=== PATIENT | male | born 1935 | race Caucasian/White ===

== ENCOUNTER 2018-05-11 12:26 | Inpatient (IN) | payer MEDICARE, OTHER | END 2018-05-13 16:00 | disposition home or self-care (01) | LOC: ER 12:26 → ED HOLD 17:20 → SUR 3N 19:45 ==

== ENCOUNTER 2018-08-29 11:54 | Day surgery (SDC) | payer MEDICARE, OTHER ==
[~2018-08-29] VITALS: Ht 175.3 cm; Wt 84.0 kg
[2018-08-29] VITALS (9 sets, daily range): BP systolic 116–148; BP diastolic 55–82
[~2018-08-29 11:54] MED LIST: ASPI-1265 PO; ATOR40TA PO; CHOL10002 PO; CLOP75TA35 PO; CYAN-51 PO; DUTA0.5C40 PO; FAMO20TA8 PO; FEXO-236 PO; FLO0.4C PO; GUAI1TBM19 PO; LISI-600 PO; OMEP-271 PO; iron PO
[2018-08-29] MEDS ORDERED: cefazolin/dext.iso 2gm/100 ML IV ONE (13:30)
[2018-08-29] MEDS ORDERED: ringers solution, lacted 1,000 ML IV SCH ×2 (13:30→16:34)
[2018-08-29] MEDS ORDERED: famotidine 20mg tablet PO ONE (13:30)
[2018-08-29 14:33] LABS: CLARITY,URINE CLOUDY (Clear); COLOR,URINE YELLOW (Yellow); GLUCOSE, URINE NEGATIVE (Neg); KETONES,URINE NEGATIVE (Neg); LEUKOCYTE ESTERASE ,URINE MODERATE (Neg); NITRITES, URINE NEGATIVE (Neg); OCCULT BLOOD,URINE NEGATIVE (Neg); PH,URINE 5.5 (4.8-8.0); PROTEIN,URINE TRACE mg/dl (Neg)
[2018-08-29 14:37] LABS: UA COLLECTION TYPE CLN CATCH MIDSTREAM
[2018-08-29 14:38] LABS: WBC,URINE TNTC /HPF (0-4)
[2018-08-29 14:39] LABS: BACTERIA,URINE 1+ /HPF (Neg); RBC,URINE 0-2 /HPF (0-2); SQUAMOUS EPITHELIAL CELL,UR FEW /LPF (FEW); WBC CLUMPS,URINE MANY /HPF (NEGATIVE)
[2018-08-29 14:51] LABS: ALBUMIN 2.6 G/DL (3.4-5.0); ALBUMIN/GLOBULIN RATIO 0.7 (1.1-1.5); ALKALINE PHOSPHATASE 81 IU/L (46-116); BLOOD UREA NITROGEN 26 MG/DL (7-18); BUN/CREATININE RATIO 24.1 (5.4-32.0); CALCIUM 8.1 MG/DL (8.5-10.1); CHLORIDE 106 MMOL/L (99-107); CREATININE 1.08 MG/DL (0.60-1.10); PRE OP ALT 22 U/L (30-65); PRE OP ANION GAP 8 (8-16); PRE OP AST 11 U/L (10-37); PRE OP BILIRUB, TOTAL 0.2 MG/DL (0.0-1.0); PRE OP GLUCOSE 104 MG/DL (70-104); PRE OP POTASSIUM 4.1 MMOL/L (3.4-5.1); PRE OP SODIUM 138 MMOL/L (135-145); TOTAL CARBON DIOXIDE 24.2 MMOL/L (24-32); TOTAL PROTEIN 6.4 G/DL (6.4-8.2); eGFR 66 ML/MIN
[2018-08-29 14:56] LABS: BASOPHILS # (AUTO) 0.1 X10'3 (0-0.2); BASOPHILS % (AUTO) 0.4 % (0-1); EOSINOPHILS # (AUTO) 0.1 X10'3 (0-0.9); EOSINOPHILS % (AUTO) 0.6 % (0-6); LYMPHOCYTES # (AUTO) 1.6 X10'3 (1.1-4.8); LYMPHOCYTES % (AUTO) 9.7 % (21-51); MEAN CORPUSCULAR HEMOGLOBIN 24.9 PG (27.0-31.0); MEAN CORPUSCULAR HGB CONC 30.7 g/dL (33.0-36.5); MEAN CORPUSCULAR VOLUME 80.9 FL (78-98); MEAN PLATELET VOLUME 8.2 FL (7.4-10.4); MONOCYTES % (AUTO) 6.3 % (2-12); NEUTROPHILS # (AUTO) 13.5 X10'3 (1.8-7.7); PRE OP HEMATOCRIT 24.4 % (42.0-52.0); PRE OP PLATELET COUNT 355 X10'3 (140-440); RED BLOOD COUNT 3.01 X10'6 (4.70-6.10); RED CELL DISTRIBUTION WIDTH 17.3 % (11.5-14.5)
[2018-08-29 14:59] LABS: PRE OP PARTIAL THROMB. TIME 33 SECONDS (22-32)
[2018-08-29 15:08] LABS: PRE OP HEMOGLOBIN 7.5 g/dL (14.0-17.9)
[2018-08-29] MEDS ORDERED: labetalol 20mg/4ml (5mg/ml) syringe IV PRN (16:35)
[2018-08-29] MEDS ORDERED: morphine 4 MG/ML inj SYRINge IV PRN ×2 (16:35)
[2018-08-29] MEDS ORDERED: fentaNYL/PF 50MCG/1 ML 2ML syringe IV PRN ×2 (16:35)
[2018-08-29] MEDS ORDERED: enalaprilat dihydrate 2.5mg/2ml vial IV PRN (16:35)
[2018-08-29] MEDS ORDERED: ondansetron/PF 4mg/2ml inj IV PRN (16:35)
[2018-08-29] MEDS ORDERED: sevoflurane 250ml liquid IH ONE (18:17)
[2018-08-29] MEDS ORDERED: fentaNYL/PF 50MCG/1 ML 2ML syringe ONE (18:19)
[2018-08-29] MEDS ORDERED: propofol inj 20 ML IV ONE (18:19)
--- NOTE | 2018-08-29 18:54 | NUR ---
Received from OR via [facility], accompanied by Anesthesiologist MICHAEL and report given by Anesthesiolgist. Pt alert and responsive, VS stable, home wound vac hooked up to site, draining minimally serosang fluid. Mask to 10L O2. Moves all extremeties. Belongings brought to bedside. IC 20G to left AC intact IVF 100cc/hr.
--- NOTE | 2018-08-29 20:24 | NUR ---
Pt discharged to vehicle by wheelchair without incident. Pt has no pain. IV DC'd, prescriptions given to patient, wound vac draining appropriately, serosang fluid. Canister changed prior to patient leaving so as to show patient and how to do it in case canister fills prior to Home Health nurse comes to visit. All wound vac supplies sent home with patient. Dr Cazares was called to clarify the medication orders after I told him there was a min-mod amount of drainage in the canister. He states patient can start plavix tomorrow not tonight. This information was added to discharge information. I also discussed with patient the need for Home Health nurse and they reiterated MD office had set that up. I instructed them to call Dr Cazares's office if they did not get a call from so they can be followed up with before end of post op day one. Pt and state understanding of all instructions and demonstrations.
== END 2018-08-29 20:24 | disposition home or self-care (01) ==
LOC: PAS 11:54
PROVIDERS: ATTEND Surgery
DX: T81.89XA Other complications of procedures, not elsewhere classified, initial encounter (principal); Z01.812 Encounter for preprocedural laboratory examination; Z00.00 Encounter for general adult medical examination without abnormal findings; I25.10 Atherosclerotic heart disease of native coronary artery without angina pectoris; E78.5 Hyperlipidemia, unspecified; I10 Essential (primary) hypertension; N40.0 Benign prostatic hyperplasia without lower urinary tract symptoms; Z95.5 Presence of coronary angioplasty implant and graft
CPT/HCPCS: 11042; 36415; 80053; 81001; 85025; 85610; 85730; 87077; 87088; 87186; 97608; J2704; J3010; J7120; A4618; A7000